=== PATIENT | female | born 1970 | race Caucasian/White ===

== ENCOUNTER 2018-05-26 03:41 | Emergency (ER) | payer OTHER ==
[~2018-05-26] VITALS: Ht 160 cm; Wt 117.9 kg
[2018-05-26] MEDS ORDERED: BENADRYL25 MG PO (06:11)
[2018-05-26] MEDS ORDERED: PEPCID40 MG PO (06:11)
[2018-05-26] MEDS ORDERED: MEDROL4 MG PO (06:11)
== END 2018-05-26 06:23 | disposition home or self-care (01) ==
LOC: ER 03:41
DX: L50.8 Other urticaria (principal)

== ENCOUNTER 2020-04-18 13:43 | Emergency (ER) | payer OTHER ==
[~2020-04-18] VITALS: Ht 160 cm; Wt 108.9 kg
[~2020-04-18 13:43] MED LIST: BENADRYL25 MG PO; MEDROL4 MG PO; PEPCID40 MG PO
== END 2020-04-18 19:31 | disposition home or self-care (01) ==
LOC: ER 13:43
DX: H60.8X3 Other otitis externa, bilateral (principal); H66.93 Otitis media, unspecified, bilateral

== ENCOUNTER 2021-09-30 09:51 | Emergency (ER) | payer OTHER ==
[~2021-09-30] VITALS: Ht 162.6 cm; Wt 113.4 kg
[2021-09-30] MEDS ORDERED: MEDROLPACK PO (15:19)
[2021-09-30] MEDS ORDERED: ATARAX25 MG PO (15:19)
[2021-09-30] MEDS ORDERED: ZYRTEC10 M3 PO (15:19)
== END 2021-09-30 15:26 | disposition home or self-care (01) ==
LOC: ER 09:51
DX: R21 Rash and other nonspecific skin eruption (principal); Z88.8 Allergy status to other drugs, medicaments and biological substances

== ENCOUNTER 2024-02-22 09:58 | Emergency (ER) | payer OTHER ==
[~2024-02-22] VITALS: Ht 162.6 cm; Wt 113.4 kg
[~2024-02-22 09:58] MED LIST changes: +ATARAX25 MG PO; +MEDROLPACK PO; +ZYRTEC10 M3 PO
[2024-02-22] MEDS ORDERED: 0.9 % SODIUM CHLORIDE 1,000 ML IV SCH (10:45)
[2024-02-22] MEDS ORDERED: ONDANSETRON HCL 2 MG/ML VIAL IV ONE (10:45)
[2024-02-22] MEDS ORDERED: KETOROLAC TROMETHAMINE 30 MG VIAL IV ONE (10:45)
[2024-02-22] MEDS ORDERED: KETOROLAC TROMETHAMINE 30 MG VIAL ONE (10:57)
[2024-02-22] MEDS ORDERED: ONDANSETRON HCL 2 MG/ML VIAL ONE (10:58)
[2024-02-22 11:15] LABS: HEMATOCRIT 40.3 % (36.0-45.00); HEMOGLOBIN 14.2 g/dL (12.0-15.00); MEAN CELL VOLUME 84.4 fL (80.00-100.00); MEAN CORPUSCULAR HEMOGLOBIN 29.7 pg (27.00-32.0); MEAN CORPUSCULAR HGB CONC 35.2 g/dl (32.0-36.0); PLATELET COUNT 248 K/uL (150-450); RED BLOOD COUNT 4.77 M/uL (4.00-6.00); RED CELL DISTRIBUTION WIDTH 13.5 % (11.5-14.5)
[2024-02-22 11:54] LABS: ALBUMIN 4.2 gm/dL (3.4-5.0); BILIRUBIN TOTAL 1.33 mg/dL (0.3-1.2); CALCIUM 9.2 mg/dL (8.5-10.1); CREATININE SERUM 0.69 mg/dL (0.55-1.02); GFR 88.66; GLOBULINA 3.8 G/DL (2.4-3.5); POTASSIUM 3.96 mEq/L (3.5-5.1)
[2024-02-22 12:15] LABS: URINE APPEARANCE Cloudy; URINE BILIRRUBIN Negative (NEGATIVE); URINE BLOOD Large; URINE COLOR Dark Yellow; URINE GLUCOSE Negative (NEGATIVE); URINE LEUKOCYTE Negative; URINE NITRATE Negative; URINE PROTEIN 30 (NEGATIVE); URINE UROBILINOGEN 0.2 E.U./dl
[2024-02-22 12:16] LABS: URINE BACTERIA 924.8 uL (0.0-1933); URINE RBC 440.2 uL (0.0-20.8); URINE WBC 10.2 uL (0.0-23.2)
[2024-02-22] MEDS ORDERED: CIPRO500 MG PO (13:21)
[2024-02-22] MEDS ORDERED: TAMS0.4C PO (13:21)
[2024-02-22] MEDS ORDERED: ZOFRAN8 MG PO (13:21)
[2024-02-22] MEDS ORDERED: KETO10TA2 PO (13:21)
== END 2024-02-22 13:30 | disposition home or self-care (01) ==
LOC: ER 09:59
PROVIDERS: General Practice
DX: N20.1 Calculus of ureter (principal); N28.1 Cyst of kidney, acquired; D25.9 Leiomyoma of uterus, unspecified; K57.30 Diverticulosis of large intestine without perforation or abscess without bleeding; Z88.8 Allergy status to other drugs, medicaments and biological substances

== ENCOUNTER 2024-07-24 18:01 | Emergency (ER) | payer OTHER ==
[~2024-07-24] VITALS: Ht 162.6 cm; Wt 117.9 kg
[~2024-07-24 18:01] MED LIST changes: +CIPRO500 MG PO; +KETO10TA2 PO; +TAMS0.4C PO; +ZOFRAN8 MG PO
[2024-07-24] MEDS ORDERED: BENZONATATE 100 MG CAPSULE PO ONE (20:15)
[2024-07-24] MEDS ORDERED: ACETAMINOPHEN 500 MG GEL..CAP PO ONE (20:15)
[2024-07-24] MEDS ORDERED: GUAIFENESIN 200 MG/10 ML BLIST.PACK PO ONE (20:15)
[2024-07-24 20:55] LABS: HEMATOCRIT 41.1 % (36.0-45.00); HEMOGLOBIN 14.2 g/dL (12.0-15.00); MEAN CELL VOLUME 86.6 fL (80.00-100.00); MEAN CORPUSCULAR HEMOGLOBIN 29.9 pg (27.00-32.0); MEAN CORPUSCULAR HGB CONC 34.6 g/dl (32.0-36.0); PLATELET COUNT 224 K/uL (150-450); RED BLOOD COUNT 4.75 M/uL (4.00-6.00); RED CELL DISTRIBUTION WIDTH 13.4 % (11.5-14.5)
== END 2024-07-24 21:52 | disposition home or self-care (01) ==
LOC: ER 18:03
PROVIDERS: General Practice
DX: J11.1 Influenza due to unidentified influenza virus with other respiratory manifestations (principal); Z20.822 Contact with and (suspected) exposure to COVID-19; Z88.6 Allergy status to analgesic agent